=== PATIENT | male | born 1995 | race Two or more races ===

== ENCOUNTER 2021-04-09 06:11 | Emergency (ER) | payer SELFPAY ==
[~2021-04-09] VITALS: Ht 182.9 cm; Wt 77.1 kg
[2021-04-09 06:13] VITALS: BP 131/75
== END 2021-04-09 09:51 | disposition home or self-care (01) ==
LOC: ER 06:11
DX: L03.011 Cellulitis of right finger (principal); F17.210 Nicotine dependence, cigarettes, uncomplicated